=== PATIENT | male | born 1975 | race Caucasian/White ===

== ENCOUNTER 2018-09-15 17:27 | Emergency (ER) | payer OTHER ==
[~2018-09-15] VITALS: Ht 175.2 cm; Wt 99.8 kg
--- NOTE | ~2018-09-15 | EKG ---
[place], [place] ELECTROCARDIOGRAM REPORT NAME: CHLOE GARCIA UNIT #: [id number] ROOM: DOCTOR: EPIPHANY DRAFT REPORT BIRTHDATE: [birth year] [facility] Test Date: 2018-09-15 Test Time: 17:34:53 Pat Name: CHLOE GARCIA Department: ER Room: 19 Gender: M Microphone Operator: Yuliya Prince : 1975 Requested By: VIRGINIA MCBRIDE Order Number: [id number] Reading MD: Ag Coreas MD Measurements Intervals Drayden Rate: 73 P: 16 [place]: 114 QRS: 23 QRSD: 107 T: 32 QT: 399 QTc: 440 Interpretive Statements Sinus rhythm Borderline short [place] interval Abnormal R-wave progression, early transition Minimal ST elevation, anterior leads Electronically Signed On 09-19-2018 8:20:22 PDT by Ag Coreas MD CM:EKGRPT:ELECTROCARDIOGRAM REPORT [id number] VIRGINIA GODOY DRAFT REPORT VIRGINIA MCBRIDE M.D.
--- NOTE | ~2018-09-15 | EKG ---
[place], [place] ELECTROCARDIOGRAM REPORT NAME: CHLOE GARCIA UNIT #: [id number] ROOM: DOCTOR: EPIPHANY DRAFT REPORT BIRTHDATE: [birth year] [facility] Test Date: 2018-09-15 Test Time: 20:12:59 Pat Name: CHLOE GARCIA Department: ER Room: 19 Gender: M [employer] Director: Neida Burnette : 1975 Requested By: VIRGINIA MCBRIDE Order Number: [id number] Reading MD: Ag Coreas MD Measurements Intervals Leopold Rate: 66 P: 46 NC: 120 QRS: 30 QRSD: 108 T: 29 QT: 421 QTc: 442 Interpretive Statements Sinus rhythm RSR' in V1 or V2, right VCD or RVH Minimal ST elevation, anterior leads Baseline wander in lead(s) V3 Electronically Signed On 09-19-2018 8:20:36 PDT by Ag Coreas MD CM:EKGRPT:ELECTROCARDIOGRAM REPORT 11 9 VIRGINIA GODOY DRAFT REPORT VIRGINIA MCBRIDE M.D.
[2018-09-15 17:46] LABS: BASO # 0.1 10*3/uL (0.0-0.1); BASO % 0.5 % (0.0-1.0); EOS # 0.3 10*3/uL (0.0-0.4); EOS % 2.3 % (1.0-4.0); HEMATOCRIT 50.3 % (42.0-52.0); HEMOGLOBIN 17.2 g/dl (14.0-18.0); LYMPH # 4.3 10*3/uL (1.3-4.4); LYMPH % 37.9 % (27.0-41.0); MEAN CELL VOLUME 101.8 fl (80.0-94.0); MEAN CORPUSCULAR HGB 34.8 pg (27.0-31.0); MEAN CORPUSCULAR HGB CONC 34.2 g/dl (33.0-37.0); MEAN PLATELET VOLUME 10.6 fl (9.6-12.3); MONO # 0.6 10*3/uL (0.1-1.0); MONO % 5.7 % (3.0-9.0); NEUT % 53.2 % (47.0-73.0); PLATELET COUNT AUTOMATED 192 10*3/uL (130-400); RED BLOOD COUNT 4.94 10*6/uL (4.50-5.90); RED CELL DISTRI WIDTH 12.5 % (0-14.5); WHITE BLOOD COUNT 11.3 10*3/uL (4.8-10.8)
[2018-09-15 17:59] LABS: ACT PARTIAL THROMBO TIME 24.2 SECONDS (20.8-31.5); INTERNATIONAL NORM RATIO 0.9 (2.0-3.5)
[2018-09-15 18:13] LABS: ALKALINE PHOSPHATASE 74 U/L (45-117); BUN 18 mg/dl (7-24); CHLORIDE 106 mmol/L (98-107); CREATININE 1.28 mg/dL (0.70-1.30); POTASSIUM 4.1 mmol/L (3.5-5.1); SGOT/AST 21 IU/L (3-35); SGPT/ALT 32 U/L (12-78); SODIUM 140 mmol/L (136-145); TOTAL PROTEIN 7.6 gm/dL (6.4-8.2)
[2018-09-15 18:14] LABS: TROPONIN I < 0.015 ng/ml (<0.045)
== END 2018-09-15 21:50 | disposition left against medical advice (07) ==
LOC: ED 17:27
PROVIDERS: Emergency Medicine
DX: R07.89 Other chest pain (principal); I10 Essential (primary) hypertension